=== PATIENT | male | born 1980 | race Caucasian/White ===

== ENCOUNTER 2017-12-25 17:45 | Emergency (ER) | payer OTHER ==
[2017-12-25 18:05] VITALS: BP 114/77
--- NOTE | 2017-12-25 18:29 | UC ---
Back Pain HPI - HPI Summary HPI Summary: 37 yo male with the onset of LBP lifting son Initially a 9 now better right mid thoraic no paresthesia crampy worse with ovement - History of Current Complaint Chief Complaint: UCBackPain Stated Complaint: BACK INJURY,MUSCLE Time Seen by Provider: 12/25/17 18:18 Hx Obtained From: Patient Onset/Duration: Sudden Onset, Lasting Hours Timing: Constant Severity Initially: Severe Severity Currently: Mild Pain Intensity: 4 Pain Scale Used: 0-10 Numeric Back Pain: Is Discrete @ Character: Aching, Throbbing, Spasmodic Aggravating Factor(s): Movement, Lifting Alleviating Factor(s): Rest Associated Signs And Symptoms: Positive: Negative Full Body (No Head): 1 - pain/tenderness here - Allergies/Home Medications Allergies/Adverse Reactions: Allergies Allergy/AdvReac Type Severity Reaction Status Date / Time No Known Allergies Allergy Verified 12/25/17 18:05 PMH/Surg Hx/FS Hx/Imm Hx Previously Healthy: Yes - Surgical History Surgical History: None - Family History Known Family History: Positive: Hypertension - Social History Alcohol Use: None Substance Use Type: None Smoking Status (MU): Never Smoked Tobacco Review of Systems Constitutional: Negative Skin: Negative Eyes: Negative ENT: Negative Respiratory: Negative Cardiovascular: Negative Gastrointestinal: Negative Genitourinary: Negative Motor: Negative Neurovascular: Negative Musculoskeletal: Myalgia Neurological: Negative Psychological: Negative Is Patient Immunocompromised?: No All Other Systems Reviewed And Are Negative: Yes Physical Exam Triage Information Reviewed: Yes Appearance: Well-Appearing, No Pain Distress, Well-Nourished Vital Signs: Initial Vital Signs Temp 97.9 F 12/25/17 18:00 Pulse 61 12/25/17 18:00 Resp 16 12/25/17 18:00 BP 114/77 12/25/17 18:00 Pulse Ox 98 12/25/17 18:00 Vital Signs Reviewed: Yes Eyes: Positive: Conjunctiva Clear ENT: Positive: Hearing grossly normal. Negative: Nasal congestion, Nasal drainage, Uvula midline Neck: Positive: Supple, Nontender Respiratory: Positive: Lungs clear, Normal breath sounds, No respiratory distress, No accessory muscle use Cardiovascular: Positive: RRR, No Murmur Musculoskeletal: Positive: Strength Intact, ROM Intact, No Edema Neurological: Positive: Alert Psychological Exam: Normal Skin Exam: Normal Back Pain Course/Dx - Differential Dx/Diagnosis Provider Diagnoses: right thoracic myofacial strain Discharge - Sign-Out/Discharge Documenting (check all that apply): Patient Departure All imaging exams completed and their final reports reviewed: No Studies - Discharge Plan Condition: Stable Disposition: HOME Prescriptions: Cyclobenzaprine TAB* [Flexeril TAB*] 5 - 10 mg PO TID PRN #15 tab PRN Reason: Spasms Patient Education Materials: Thoracic Back Strain (ED) Referrals: No Primary Care Phys,NOPCP [Primary Care Provider] - Additional Instructions: recheck in 5 days if not better - Billing Disposition and Condition Condition: STABLE Disposition: Home
== END 2017-12-25 18:43 | disposition home or self-care (01) ==
LOC: UCEAST 17:45
DX: S29.012A Strain of muscle and tendon of back wall of thorax, initial encounter (principal); X58.XXXA Exposure to other specified factors, initial encounter; Y92.9 Unspecified place or not applicable
CPT/HCPCS: 99202; G0463